=== PATIENT | female | born 1975 ===

== ENCOUNTER → 2024-09-28 12:30 | Outpatient (REF) | payer BC, SELFPAY | LOC: RAD 12:30 | PROVIDERS: ATTENDING PHYSICIAN Physician Assistant Surgical; REFERRING PHYSICIAN Obstetrics & Gynecology Gynecologic Oncology | DX: C56.1 Malignant neoplasm of right ovary (principal); C54.1 Malignant neoplasm of endometrium; Z12.31 Encounter for screening mammogram for malignant neoplasm of breast | CPT/HCPCS: 71260; 74177; Q9967 ==

== ENCOUNTER → 2024-09-29 15:39 | Outpatient (REF) | payer BC, SELFPAY | LOC: WDC 15:39 | PROVIDERS: ATTENDING PHYSICIAN Physician Assistant Surgical | DX: Z12.31 Encounter for screening mammogram for malignant neoplasm of breast (principal) | CPT/HCPCS: 77063; 77067 ==

== ENCOUNTER → 2024-10-13 10:03 | Outpatient (REF) | payer BC, SELFPAY | LOC: WDC 10:03 | PROVIDERS: ATTENDING PHYSICIAN Physician Assistant Surgical | DX: R92.8 Other abnormal and inconclusive findings on diagnostic imaging of breast (principal) | CPT/HCPCS: 76642 ==